=== PATIENT | female | born 2000 | race Two or more races ===

== ENCOUNTER 2021-10-05 15:54 | Emergency (ER) | payer OTHER ==
[~2021-10-05] VITALS: Ht 162.6 cm; Wt 50.3 kg
== END 2021-10-05 21:38 | disposition home or self-care (01) ==
LOC: ER 15:54
DX: O26.831 Pregnancy related renal disease, first trimester (principal); Z3A.12 12 weeks gestation of pregnancy; R10.84 Generalized abdominal pain; Z20.828 Contact with and (suspected) exposure to other viral communicable diseases

== ENCOUNTER 2022-04-10 07:22 | Inpatient (IN) | payer OTHER ==
[~2022-04-10] VITALS: Ht 162.6 cm; Wt 64.9 kg
[2022-04-10] MEDS ORDERED: PRENATAL + DHA1 EAC1 PO (08:16)
== END 2022-04-12 16:58 | disposition home or self-care (01) | DRG 807 ==
LOC: LDR 07:22 → OB/GYN 07:22
PROVIDERS: ADMIT Specialist; ATTEND Specialist
PROC: 10E0XZZ Delivery of Products of Conception, External Approach (ICD-10-PCS; principal; 2022-04-10)
PROC: 0W8NXZZ Division of Female Perineum, External Approach (ICD-10-PCS; 2022-04-10)
PROC: 4A1HXCZ Monitoring of Products of Conception, Cardiac Rate, External Approach (ICD-10-PCS; 2022-04-10)
DX: O80 Encounter for full-term uncomplicated delivery (principal); Z37.0 Single live birth; Z3A.39 39 weeks gestation of pregnancy; Z20.822 Contact with and (suspected) exposure to COVID-19